=== PATIENT | female | born 1970 | race Caucasian/White ===

== ENCOUNTER → 2017-12-20 | Outpatient (CLI) | payer MEDICARE ==
[~2017-12-20] MED LIST: ADVIL100 MG; Augmentin 875-1 EACH PO; DOXE75C; FLUO10; PREG25
== END | disposition home or self-care (01) ==
LOC: LAB SHORT 19:44 → LAB 19:44
DX: Z01.419 Encounter for gynecological examination (general) (routine) without abnormal findings (principal); N89.8 Other specified noninflammatory disorders of vagina
CPT/HCPCS: 87070; 87077; 87186; 87205